=== PATIENT | female | born 2000 | race American Indian/Alaskan Native ===

== ENCOUNTER 2018-12-06 12:21 | Outpatient (CLI) | payer MEDICAID ==
[2018-12-06 12:39] VITALS: BP 102/67
[2018-12-06 13:47] LABS: Bacteria,Urine 1+ /HPF (Negative); Bilirubin,Urine NEG (Negative); Blood,Urine NEG (Negative); Color,Urine Yellow (Yellow); Mucus,Urine FEW /HPF; Protein,Urine <15 mg/dL mg/dL (Negative)
[2018-12-06 14:12] LABS: Amphetamine Screen,Urine PRESUMPTIVE NEGATIVE; Benzodiazepines Screen,Urine PRESUMPTIVE NEGATIVE; Cannabinoid Screen,Urine PRESUMPTIVE NEGATIVE; Cocaine Screen,Urine PRESUMPTIVE NEGATIVE; Methadone Screen,Urine PRESUMPTIVE NEGATIVE; Opiate Screen,Urine PRESUMPTIVE NEGATIVE
== END 2018-12-06 14:00 | disposition home or self-care (01) ==
LOC: TRG 12:21
PROVIDERS: ATTEND Obstetrics & Gynecology
DX: O47.1 False labor at or after 37 completed weeks of gestation (principal); Z3A.38 38 weeks gestation of pregnancy
CPT/HCPCS: 59025; 80307; 81001

== ENCOUNTER 2019-12-28 10:53 | Emergency (ER) | payer SELFPAY ==
--- NOTE | 2019-12-28 11:05 | Emergency Department Report ---
Blank Doc - Documentation Documentation: 19-year-old female that presents with right flank pain with dysuria. This initial assessment/diagnostic orders/clinical plan/treatment(s) is/are subject to change based on patient's health status, clinical progression and re- assessment by fellow clinical providers in the ED. Further treatment and workup at subsequent clinical providers discretion. Patient/guardians urged not to elope from the ED as their condition may be serious if not clinically assessed and managed. Initial orders include: 1- Patient sent to [facility] for further evaluation and treatment 2- UA
[2019-12-28 11:09] VITALS: BP 108/62
[2019-12-28 12:16] LABS: Bilirubin,Urine NEG (Negative); Color,Urine Yellow (Yellow)
[2019-12-28 12:17] LABS: Bacteria,Urine 2+ /HPF (Negative); Blood,Urine SM (Negative); Mucus,Urine 3+ /HPF
[2019-12-28 12:29] LABS: WBC,Urine > 182.0 /HPF (0.0-6.0)
[2019-12-28 12:30] LABS: HCG Qualitative,Urine Negative (Negative)
--- NOTE | 2019-12-28 13:01 | Emergency Department Report ---
ED Female HPI - General Chief complaint: Abdominal Pain Stated complaint: BACK/KIDNEY PAIN Time Seen by Provider: 12/28/19 11:05 Source: patient Mode of arrival: Ambulatory Limitations: No Limitations - History of Present Illness Initial comments: 19-year-old -British female presents to the emergency room complaining of right-sided flank pain x1 week and now with dysuria. Patient denies any nausea no vomiting no hematuria. Patient states that the pain radiates from her right flank area to her suprapubic area. She states that the pain is sharp and intermittent. Her last menstrual period was 11/23/2019. She just recently got off control of dapple. Patient states urinating makes it worse and as well as urinating makes it better. Patient is tried [id number] pain medication and AZO. Patient states she takes iron and has no past medical history and no known drug allergies. Patient states that she has not been sexually active in the last 2 months. MD Complaint: dysuria Onset/Timin -: week(s) Location: suprapubic Radiation: R flank Severity: moderate Severity scale (0 -10): 5 Quality: sharp Consistency: intermittent Improves with: urination Worsens with: urination Are you Now?: No Last Menstrual Period: 11/23/19 EDC: 08/29/20 Associated Symptoms: dysuria. denies: vaginal discharge, vaginal bleeding, abdominal pain, nausea/vomiting, fever/chills, headaches, loss of appetite, hematuria, rash, shortness of breath, syncope, weakness - Related Data Sexually active: Yes Previous Rx's Medication Instructions Recorded Last Taken Type Ferrous Sulfate [Feosol 325 MG tab] 325 mg PO BID #60 tablet 12/12/18 Unknown Rx HYDROcodone/APAP 5-325 [[place] 1 each PO Q6HR PRN #20 tablet 12/12/18 Unknown Rx 5/325] Ibuprofen [Motrin] 800 mg PO Q8HR PRN #30 tablet 12/12/18 Unknown Rx Nitrofurantoin [place]/M-Cryst 100 mg PO Q12HR 10 Days #20 capsule 12/28/19 Unknown Rx [Macrobid CAP] Allergies Allergy/AdvReac Type Severity Reaction Status Date / Time No Known Allergies Allergy Verified 12/06/18 13:22 ED Review of Systems ROS: Stated complaint: BACK/KIDNEY PAIN Other details as noted in HPI Comment: All other systems reviewed and negative ED Past Medical Hx - Past Medical History Previous Medical History?: No Hx Hypertension: No Hx Congestive Heart Failure: No Hx Diabetes: No Hx Deep Vein Thrombosis: No Hx Renal Disease: No Hx Sickle Cell Disease: No Hx Seizures: No Hx Asthma: No Hx COPD: No Hx HIV: No - Surgical History Past Surgical History?: No - Social History Smoking Status: Never Smoker Substance Use Type: None - Medications Home Medications: Home Medications Medication Instructions Recorded Confirmed Last Taken Type Ferrous Sulfate [Feosol 325 MG tab] 325 mg PO BID #60 tablet 12/12/18 Unknown Rx HYDROcodone/APAP 5-325 [[place] 1 each PO Q6HR PRN #20 tablet 12/12/18 Unknown Rx 5/325] Ibuprofen [Motrin] 800 mg PO Q8HR PRN #30 tablet 12/12/18 Unknown Rx Nitrofurantoin [place]/M-Cryst 100 mg PO Q12HR 10 Days #20 capsule 12/28/19 Unknown Rx [Macrobid CAP] ED Physical Exam - General Limitations: No Limitations General appearance: alert - Head Head exam: Present: atraumatic - Eye Eye exam: Present: normal appearance - ENT ENT exam: Present: mucous membranes moist - Neck Neck exam: Present: normal inspection, full ROM - Respiratory Respiratory exam: Present: normal lung sounds bilaterally - Cardiovascular Cardiovascular Exam: Present: regular rate - GI/Abdominal GI/Abdominal exam: Present: soft, tenderness (Suprapubic), normal bowel sounds. Absent: distended - Back Exam Back exam: Present: full ROM, CVA tenderness (R) - Neurological Exam Neurological exam: Present: alert, oriented X3, normal gait - Psychiatric Psychiatric exam: Present: normal affect, normal mood - Skin Skin exam: Present: warm, dry, intact, normal color. Absent: rash ED Course Vital Signs 12/28/19 11:06 Temperature 98.6 F Pulse Rate 84 Respiratory 18 Rate Blood Pressure 108/62 O2 Sat by Pulse 98 Oximetry ED Medical Decision Making - Medical Decision Making 19-year-old -British female presents to the emergency room complaining of right-sided flank pain x1 week and now with dysuria. Patient denies any nausea no vomiting no hematuria. Patient states that the pain radiates from her right flank area to her suprapubic area. She states that the pain is sharp and intermittent. Her last menstrual period was 11/23/2019. She just recently got off control of dapple. Patient states urinating makes it worse and as well as urinating makes it better. Patient is tried [id number] pain medication and AZO. Patient states she takes iron and has no past medical history and no known drug allergies. Patient states that she has not been sexually active in the last 2 months. Urinalysis shows the patient has a urinary tract infection. Patient be placed on Macrobid instructed to take Tylenol or ibuprofen for pain management. And to follow-up with her LATH TIER. Critical care attestation.: If time is entered above; I have spent that time in minutes in the direct care of this critically ill patient, excluding procedure time. ED Disposition Clinical Impression: Acute right flank pain, UTI (urinary tract infection) Disposition: TO HOME OR SELFCARE Is pt being admited?: No Does the pt Need Aspirin: No Condition: Stable Instructions: Abdominal Pain (ED), Urinary Tract Infection in Women (ED) Additional Instructions: Complete antibiotics as prescribed. Void after intercourse. Increase your fluid intake advance your diet as tolerated. I recommend following up with your [facility] to have a repeat urinalysis in 10 days. Prescriptions: Nitrofurantoin [place]/M-Cryst [Macrobid CAP] 100 mg PO Q12HR 10 Days #20 capsule Referrals: PRIMARY CARE, [Primary Care Provider] - 3-5 Days You are, L[facility] [Other] - 3-5 Days Forms: Work/School Release Form(ED)
== END 2019-12-28 13:46 | disposition home or self-care (01) ==
LOC: ED 10:53
DX: N39.0 Urinary tract infection, site not specified (principal); R10.9 Unspecified abdominal pain; Z79.899 Other long term (current) drug therapy
CPT/HCPCS: 81001; 81025; 87076; 87086; 87186; 99283

== ENCOUNTER 2020-06-26 02:24 | Emergency (ER) | payer SELFPAY | END 2020-06-26 03:35 | disposition left against medical advice (07) | LOC: ED 02:24 | DX: R10.9 Unspecified abdominal pain (principal); Z53.21 Procedure and treatment not carried out due to patient leaving prior to being seen by health care provider ==

== ENCOUNTER 2021-11-08 09:22 | Emergency (ER) | payer SELFPAY ==
[2021-11-08 09:34] VITALS: BP 100/68
[2021-11-08 12:39] LABS: Bacteria,Urine 2+ /HPF (Negative); Mucus,Urine 3+ /HPF
[2021-11-08 12:46] LABS: Basophils % (Auto) 0.4 % (0.0-1.8); Eosinophils % (Auto) 0.5 % (0.0-4.3); Hematocrit 33.5 % (30.3-42.9); Hemoglobin 11.3 gm/dl (10.1-14.3); Lymphocytes # (Auto) 2.1 K/mm3 (1.2-5.4); Lymphocytes % (Auto) 28.2 % (13.4-35.0); Mean Corpuscular HGB Conc 34 % (30-34); Mean Corpuscular Volume 81 fl (79-97); Monocytes # (Auto) 0.5 K/mm3 (0.0-0.8); Monocytes % (Auto) 7.3 % (0.0-7.3); Platelet Count 307 K/mm3 (140-440); Red Blood Count 4.14 M/mm3 (3.65-5.03); Red Cell Distribution Width 16.3 % (13.2-15.2)
[2021-11-08 12:57] LABS: Color,Urine Yellow (Yellow)
--- NOTE | 2021-11-08 13:01 | Emergency Department Report ---
ED Female HPI - General Chief complaint: Abdominal Pain Stated complaint: KIDNEY STONES Time Seen by Provider: 11/08/21 11:24 Source: patient Mode of arrival: Ambulatory Limitations: No Limitations - History of Present Illness Initial comments: 21 yo F at 16 weeks gestation who present with blood in urine and left lower buttock and back pain since July. She find out she was in August. Pt has US done yesterday that dated her at 16 weeks. She denies any unusual vaginal discharge or gush of fluids. No fever or chills or any other modifying or associated factors. She says she has not had any labs in a while. - Related Data Previous Rx's Medication Instructions Recorded Last Taken Type Ferrous Sulfate [Feosol 325 MG tab] 325 mg PO BID #60 tablet 12/12/18 Unknown Rx HYDROcodone/APAP 5-325 [[place] 1 each PO Q6HR PRN #20 tablet 12/12/18 Unknown Rx 5/325] Ibuprofen [Motrin] 800 mg PO Q8HR PRN #30 tablet 12/12/18 Unknown Rx Nitrofurantoin [place]/M-Cryst 100 mg PO Q12HR 10 Days #20 capsule 12/28/19 Unknown Rx [Macrobid CAP] cephALEXin [Keflex] 500 mg PO Q12HR 5 Days #10 cap NS 11/08/21 Unknown Rx Allergies Allergy/AdvReac Type Severity Reaction Status Date / Time No Known Allergies Allergy Verified 12/06/18 13:22 ED Review of Systems ROS: Stated complaint: KIDNEY STONES Other details as noted in HPI Comment: All other systems reviewed and negative Gastrointestinal: other ( ). denies: abdominal pain, vomiting Genitourinary: hematuria Musculoskeletal: back pain (left lower back ) ED Past Medical Hx - Past Medical History Hx Hypertension: No Hx Congestive Heart Failure: No Hx Diabetes: No Hx Deep Vein Thrombosis: No Hx Renal Disease: No Hx Sickle Cell Disease: No Hx Seizures: No Hx Asthma: No Hx COPD: No Hx HIV: No - Social History Smoking Status: Never Smoker Substance Use Type: None - Medications Home Medications: Home Medications Medication Instructions Recorded Confirmed Last Taken Type Ferrous Sulfate [Feosol 325 MG tab] 325 mg PO BID #60 tablet 12/12/18 Unknown Rx HYDROcodone/APAP 5-325 [[place] 1 each PO Q6HR PRN #20 tablet 12/12/18 Unknown Rx 5/325] Ibuprofen [Motrin] 800 mg PO Q8HR PRN #30 tablet 12/12/18 Unknown Rx Nitrofurantoin [place]/M-Cryst 100 mg PO Q12HR 10 Days #20 capsule 12/28/19 Unknown Rx [Macrobid CAP] cephALEXin [Keflex] 500 mg PO Q12HR 5 Days #10 cap NS 11/08/21 Unknown Rx ED Physical Exam - General Limitations: No Limitations General appearance: alert, in no apparent distress - Head Head exam: Present: normal inspection - Eye Eye exam: Present: normal appearance Pupils: Present: normal accommodation - ENT ENT exam: Present: normal exam, normal orophraynx, mucous membranes moist - Neck Neck exam: Present: normal inspection, full ROM. Absent: tenderness - Respiratory Respiratory exam: Present: normal lung sounds bilaterally. Absent: respiratory distress, accessory muscle use - Cardiovascular Cardiovascular Exam: Present: regular rate, normal rhythm, normal heart sounds - GI/Abdominal GI/Abdominal exam: Present: soft, normal bowel sounds, other ( ). Absent: distended, tenderness - Extremities Exam Extremities exam: Present: normal inspection, full ROM, normal capillary refill. Absent: tenderness, pedal edema, joint swelling - Back Exam Back exam: Absent: tenderness, CVA tenderness (R), CVA tenderness (L) - Neurological Exam Neurological exam: Present: alert, oriented X3 - Psychiatric Psychiatric exam: Present: normal affect, normal mood - Skin Skin exam: Present: warm, normal color ED Course Vital Signs 11/08/21 09:32 Temperature 98.7 F Pulse Rate 86 Respiratory 18 Rate Blood Pressure 100/68 [Left] O2 Sat by Pulse 99 Oximetry ED Medical Decision Making - Lab Data Result diagrams: 11/08/21 11:53 11/08/21 11:53 - Medical Decision Making here with left lower back pain and hematuria-- currently at 16 weeks gestation -- her lower back pain could be round ligament related and could also be a refer pain from bladder infection so will go ahead and do labs including CBC, CMP and UA -- for differentials-- UA -- noted with positive urine bacterial -- so will treat with keflexx 5 days Critical care attestation.: If time is entered above; I have spent that time in minutes in the direct care of this critically ill patient, excluding procedure time. ED Disposition Clinical Impression: Back pain Qualifiers: Back pain location: low back pain Chronicity: unspecified Back pain laterality: left Sciatica presence: unspecified whether sciatica present Qualified Code(s): M54.50 - Low back pain, unspecified Qualifiers: Weeks of gestation: 16 weeks Qualified Code(s): Z3A.16 - 16 weeks gestation of UTI (urinary tract infection) Qualifiers: Urinary tract infection type: site unspecified Hematuria presence: with hematuria Qualified Code(s): N39.0 - Urinary tract infection, site not specified; R31.9 - Hematuria, unspecified Disposition: 01 HOME / SELF CARE / HOMELESS Is pt being admited?: No Does the pt Need Aspirin: No Condition: Stable Instructions: Abdominal Pain (ED), Urinary Tract Infection, Adult, [id number] Additional Instructions: Please take and complete your antibiotics as prescribed Increase your daily fluid to help your hydration Call and keep your [employer] appointment as planned Please do not hesitate to call or return to emergency room if your symptoms worsen Prescriptions: cephALEXin [Keflex] 500 mg PO Q12HR 5 Days #10 cap NS Time of Disposition: 15:48
[2021-11-08 13:08] LABS: Alanine Aminotransferase 12 units/L (7-56); Albumin 4.1 g/dL (3.9-5); Blood Urea Nitrogen 4 mg/dL (7-17); Hemolysis Index 0
[2021-11-08 13:10] LABS: BUN/Creatinine Ratio 8
== END 2021-11-08 16:39 | disposition home or self-care (01) ==
LOC: ED 09:22
DX: O23.42 Unspecified infection of urinary tract in pregnancy, second trimester (principal); N39.0 Urinary tract infection, site not specified; O26.892 Other specified pregnancy related conditions, second trimester; M54.50 Low back pain, unspecified; Z79.899 Other long term (current) drug therapy; Z3A.16 16 weeks gestation of pregnancy
CPT/HCPCS: 36415; 80053; 81001; 84702; 85025; 87086; 99283